=== PATIENT | female | born 1995 | race Caucasian/White ===

== ENCOUNTER 2018-06-24 01:38 | Emergency (ER) | payer OTHER ==
[2018-06-24 01:46] VITALS: BP 154/96; PULSE 75; RESP 16; TEMP 98.1
[2018-06-24] MEDS ORDERED: IBUPROFEN 600 MG TAB PO STA (02:01)
--- NOTE | 2018-06-24 02:01 | ED ---
ENT HPI - General Chief complaint: ENT Stated complaint: ear infection Time Seen by Provider: 06/24/18 01:48 Source: patient, RN notes reviewed, old records reviewed Mode of arrival: ambulatory Limitations: no limitations - History of Present Illness Initial comments: This is a 22 year old femael with 2 days of L ear pain, drainage, and fullness. She denies fever. She reports no sore throat, cough, chest pain, or SOB. She reports no trauma to the ear including using cotton swaps. She denies recent OTC pain reliever use. She reports the pain was too severe to sleep tonight. - Related Data Previous Rx's Medication Instructions Recorded Amoxicillin 500 mg PO Q8H #21 capsule 06/24/18 methylPREDNISolone Dose Pack 4 mg PO DIRECTED #21 package 06/24/18 [Medrol Dose Pack] Allergies Allergy/AdvReac Type Severity Reaction Status Date / Time No Known Allergies Allergy Verified 06/24/18 01:46 Review of Systems ROS Statement: Those systems with pertinent positive or pertinent negative responses have been documented in the HPI. ROS Other: All systems not noted in ROS Statement are negative. Past Medical History Past Medical History: Seizure Disorder History of Any Multi-Drug Resistant Organisms: None Reported Past Surgical History: No Surgical Hx Reported Past Psychological History: No Psychological Hx Reported Smoking Status: Current every day smoker Past Alcohol Use History: None Reported Past Drug Use History: None Reported General Exam - General Exam Comments Initial Comments: This is a 22 year old femle, no distress. Limitations: no limitations General appearance: alert, in no apparent distress Head exam: Present: atraumatic, normocephalic, normal inspection Eye exam: Present: normal appearance, PERRL, EOMI. Absent: scleral icterus, conjunctival injection, periorbital swelling ENT exam: Present: normal exam, mucous membranes moist. Absent: TM's normal bilaterally (L TM effusion, drainage in ear canal. ) Neck exam: Present: normal inspection. Absent: tenderness, meningismus, lymphadenopathy Respiratory exam: Present: normal lung sounds bilaterally. Absent: respiratory distress, wheezes, rales, rhonchi, stridor Cardiovascular Exam: Present: regular rate, normal rhythm, normal heart sounds. Absent: systolic murmur, diastolic murmur, rubs, gallop, clicks GI/Abdominal exam: Present: soft, normal bowel sounds. Absent: distended, tenderness, guarding, rebound, rigid Extremities exam: Present: normal inspection, full ROM, normal capillary refill. Absent: tenderness, pedal edema, joint swelling, calf tenderness Back exam: Present: normal inspection Neurological exam: Present: alert, oriented X3, CN II-XII intact Psychiatric exam: Present: normal affect, normal mood Skin exam: Present: warm, dry, intact, normal color. Absent: rash Course Vital Signs 06/24/18 01:43 Temperature 98.1 F Pulse Rate 75 Respiratory 16 Rate Blood Pressure 154/96 O2 Sat by Pulse 98 Oximetry Medical Decision Making - Medical Decision Making 22 year old female with L otititis media with effusion. Evidence of drainage from Ear canal, unable to detect area of perforation at this time. Started patient on prednisone and antibiotics. Discussed return paraeters. Discussed using motrin tylenol and decongestant medication. Disposition Clinical Impression: Left otitis media with effusion Disposition: HOME SELF-CARE Condition: Good Additional Instructions: Patient has follow-up with primary care physician. Return to emergency department if any alarming signs or symptoms occur. Take decongestant medicine. Motrin Tylenol for pain. Prescriptions: Amoxicillin 500 mg PO Q8H #21 capsule methylPREDNISolone Dose Pack [Medrol Dose Pack] 4 mg PO DIRECTED #21 package Is patient prescribed a controlled substance at d/c from ED?: No Referrals: Daly La MD [Primary Care Provider] - 1-2 days Time of Disposition: 01:59
[2018-06-24] MEDS ORDERED: predniSONE 50 MG TAB PO STA (02:02)
== END 2018-06-24 02:18 | disposition home or self-care (01) ==
LOC: EC 01:38
DX: H65.92 Unspecified nonsuppurative otitis media, left ear (principal); F17.200 Nicotine dependence, unspecified, uncomplicated
CPT/HCPCS: 99283; J7512

== ENCOUNTER 2022-05-27 06:45 | Outpatient (CLI) | payer OTHER ==
[2022-05-27 07:48] VITALS: BP 145/84; PULSE 71; RESP 18; TEMP 97.7
--- NOTE | 2022-06-15 08:30 | P.MSEPDOC ---
Presenting Problems - Arrival Data Date of Arrival on Unit: 05/27/22 Time of Arrival on Unit: 06:45 Mode of Transport: Ambulatory - Complaint OB-Reason for Admission/Chief Complaint: Decreased Movement Medical History - Information : 1 Para: 0 Term: 0 : 0 Abortions: Spontaneous or Elective: 0 Number of Living Children: 0 - Gestational Age Gestational Age by GUS (wks/days): 30 Weeks and 6 Days Review of Systems - Review of Systems Constitutional: No problems Breast: No problems ENT: No problems Cardiovascular: No problems Respiratory: No problems Gastrointestinal: No problems Genitourinary: No problems Musculoskeletal: No problems Neurological: No problems Skin: No problems Vital Signs - Temperature Temperature: 97.7 F Temperature Source: Temporal Artery Scan - Pulse Pulse Oximetery Pulse Rate: 71 Pulse Assessment Method: Pulse Oximetry - Respirations Respiratory Rate: 18 Oxygen Delivery Method: Room Air O2 Sat by Pulse Oximetry: 99 - Blood Pressure Right Arm Blood Pressure: 145/84 Blood Pressure Mean: 104 Blood Pressure Source: Automatic Cuff Medical Screen Scoring - Assessment - Baby A Baseline FHR: 125 Heart Rate - NICHD Category: Category I (Normal) NST: Reactive Physician Notification - Physician Notified Physician Notified Date: 05/27/22 Physician Notified Time: 07:38 Physician: Joan Connor New Order Received: Yes - Notification Comment Comment: Dr. Connor called, report given on maternal and status, c/o decreased movement (last movements on ). NST is reactive with large accelerations, pt is feeling good movement now, and RN has aus cultated and palpated movement as well. Pt was upset upon arrival to triage and initial BP was 145/84. It has since come down to 134/63. Pt has an appointment tomorrow with Dr. Truong. Orders to discharge pt home Maternal Triage Index - Maternal Triage Index Presenting for scheduled procedure w/no complaint: No - Stat/Priority 1 Stat Priority 1: No - Urgent/Priority 2 Urgent Priority 2: Yes Provider Notified: Joan Connor Provider Notified Time: 07:38 Criteria Met for Priority 2: 30 6/7 weeks, decreased movement since Disposition - Disposition OB Disposition: Discharge to home Discharge Date: 07/31/22 Discharge Time: 07:45 I agree with the RN Medical Screening Exam: Yes Case reviewed; plan agreed upon as documented in EMR&OBIX.: Yes Diagnosis: Decreased movement
== END 2022-05-27 07:45 | disposition home or self-care (01) ==
LOC: FBPOP 06:45
PROVIDERS: ATTEND Obstetrics & Gynecology
DX: O36.8130 Decreased fetal movements, third trimester, not applicable or unspecified (principal); Z3A.30 30 weeks gestation of pregnancy
CPT/HCPCS: 59025; G0463; 99213

== ENCOUNTER 2022-07-30 14:55 | Inpatient (IN) | payer OTHER ==
[2022-07-31] MEDS ORDERED: OXYTOCIN 30 UNITS/500 ML NS 30 UNIT in SALINE 1 500ML.BAG IV SCH ×2 (07:00→22:15)
[2022-07-31] MEDS ORDERED: TERBUTALINE 1 MG/ML VIAL SQ PRN (07:00)
[2022-07-31] MEDS ORDERED: OXYTOCIN 10 UNIT/ML 1 ML VIAL IM PRN (07:00)
[2022-07-31] MEDS ORDERED: CARBOPROST TROMETHAMINE 250 MCG/ML 1 ML AMP IM PRN (07:00)
[2022-07-31] MEDS ORDERED: METHYLERGONOVINE 0.2 MG/ML 1 ML AMP IM PRN (07:00)
[2022-07-31] MEDS ORDERED: LIDOCAINE 0.5% (PF) 5 MG/ML (50 ML SDV) SQ PRN (07:00)
[2022-07-31] MEDS: LACTATED RINGERS 1,000 ML IV SCH ×3 (07:04→16:37)
[2022-07-31 07:30] LABS: Basophils % (A) 0 %; Eosinophils # (A) 0.1 k/uL (0-0.7); Eosinophils % (A) 1 %; HCT 34.2 % (34.0-46.0); Hypochromasia Slight; Lymphocytes # (A) 3.3 k/uL (1.0-4.8); Lymphocytes % (A) 25 %; MCH 26.2 pg (25.0-35.0); MCHC 32.2 g/dL (31.0-37.0); MCV 81.2 fL (80.0-100.0); Mean Platelet Volume 8.6; Monocytes # (A) 0.7 k/uL (0-1.0); Monocytes % (A) 5 %; Neutrophils # (A) 8.9 k/uL (1.3-7.7); Neutrophils % (A) 67 %; Platelet Count 377 k/uL (150-450); RBC 4.21 m/uL (3.80-5.40); WBC 13.3 k/uL (3.8-10.6)
[2022-07-31 07:43] LABS: Amphetamine Screen,Urine Not Detected (NotDetected); Barbiturate Screen,Urine Not Detected (NotDetected); Benzodiazepines Screen,Urine Not Detected (NotDetected); Cocaine Screen,Urine Not Detected (NotDetected); Methadone Screen, Urine Not Detected (NotDetected); Opiate Screen,Urine Not Detected (NotDetected); Oxycodone Screen, Urine Not Detected (NotDetected); Phencyclidine Screen,Urine Not Detected (NotDetected); Tricyclic Antidepressant,Urine Not Detected (NotDetected); Urn Cannabinoid Scrn Not Detected (NotDetected)
--- NOTE | 2022-07-31 09:15 | P.HPOB ---
History of Present Illness H&P Date: 07/31/22 Chief Complaint: 40 and one sevenths weeks, induction the patient is a 26-year-old 1 para 0 admitted at 40 and one sevenths weeks as established by last menstrual period and confirmed by 15 week ultrasound. She is admitted for induction of labor with all signs reassuring, category 1 heart rate tracing. 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 Group B strep status is negative patient is rubella nonimmune. Obstetrical history: 1 para 0 with current statistics listed in history of present illness. EDC of 07/30/2022 was established by last menstrual period and confirmed by 15 week ultrasound. Laboratory workup demonstrates a blood type of O+ with a negative antibody screen. Rubella status is nonimmune. The remainder of her laboratory workup was within normal limits. Early Glucola as well as second trimester Glucola were within normal limits and group B strep status is negative. Gynecologic history: Unremarkable with no history of any STDs though she does have hepatitis C contracted through IV drug abuse. Review of Systems review of systems is confined to history of present illness. Past Medical History Past Medical History: Seizure Disorder Additional Past Medical History / Comment(s): last sz 2015 epilepsy History of Any Multi-Drug Resistant Organisms: None Reported Past Surgical History: No Surgical Hx Reported Past Anesthesia/Blood Transfusion Reactions: No Reported Reaction Past Psychological History: No Psychological Hx Reported Smoking Status: Never smoker Past Alcohol Use History: None Reported Past Drug Use History: None Reported Additional Drug Use History / Comment(s): Pt hx of heroin, last used 2016; Hx THC use in , UDS negative on admission - Past Family History Mother Family Medical History: No Reported History Medications and Allergies Home Medications Medication Instructions Recorded Confirmed Type FLUoxetine HCL [Prozac] 40 mg PO DAILY 05/27/22 07/31/22 History Vit No.179/Iron/Folic 1 tab PO DAILY 07/31/22 07/31/22 History [ Tablet] Allergies Allergy/AdvReac Type Severity Reaction Status Date / Time No Known Allergies Allergy Verified 07/31/22 06:58 Exam Vital Signs Temp Pulse Resp BP Pulse Ox 07/31/22 06:58 97.2 F L 94 16 140/78 96 Intake and Output 07/30/22 07/31/22 07/31/22 22:59 06:59 14:59 Other: Weight 131.542 kg 131.542 kg in general, this is a well-developed, morbidly obese white female in no acute distress. Her heart has a regular rhythm and rate without murmur. Her lungs are clear to auscultation bilaterally in all robertson. Her abdomen is obese, gravid, nondistended, has normal active bowel sounds, soft, nontender, and without any palpable masses aside from uterine fundus. Her extremities without any cyanosis, clubbing, or edema and are nontender to palpation bilaterally. Digital cervical examination demonstrates her cervix to be 2 cm dilated, 50% effaced, with the vertex in presentation at -2 station. Artificial rupture of membranes is carried out demonstrating clear fluid. Results Result Diagrams: 07/31/22 07:05 Abnormal Lab Results - Last 24 Hours (Table) 07/31/22 Range/Units 07:05 WBC 13.3 H (3.8-10.6) k/uL Hgb 11.0 L (11.4-16.0) gm/dL Neutrophils # 8.9 H (1.3-7.7) k/uL Assessment and Plan (1) Term Current Visit: Yes Status: Acute Code(s): Z34.90 - ENCNTR FOR SUPRVSN OF NORMAL , UNSP, UNSP TRIMESTER SNOMED Code(s): 50037113 (2) Chronic active hepatitis C Current Visit: Yes Status: Acute Code(s): B18.2 - CHRONIC VIRAL HEPATITIS C SNOMED Code(s): 699443761 Plan: the patient has been admitted for induction of labor. Pitocin has been started and artificial rupture of membranes carried out with clear fluid. She will have close maternal and surveillance and expectant management will be practiced. She is a good candidate for either IV or epidural analgesia should she so choose. She additionally is a candidate for nitrous oxide in labor should she choose that instead.
[2022-07-31] MEDS: BUTORPHANOL 1 MG/ML 1 ML VIAL IV PRN ×2 (09:26→11:28)
[2022-07-31] MEDS ORDERED: fentaNYL (PF) 50 MCG/ML 5 ML AMP ONE (12:55)
[2022-07-31] MEDS ORDERED: ROPIVACAINE 5 MG/ML 20 ML AMPULE ONE (12:55)
[2022-07-31] MEDS ORDERED: SODIUM CHLORIDE 0.9% 100 ML BAG ONE (12:55)
[2022-07-31] MEDS ORDERED: ROPIVACAINE 100 MG, fentaNYL (PF). 200 MCG in SODIUM CHLORIDE 0.9% 76 ML EPIDURAL ONE (13:30)
[2022-07-31] MEDS ORDERED: ONDANSETRON 4 MG/2 ML VIAL ONE (21:03)
[2022-07-31] MEDS ORDERED: OXYTOCIN 30 UNITS/500 ML NS BAG IV ONE (21:03)
[2022-07-31] MEDS ORDERED: KETOROLAC 15 MG/ML 1 ML VIAL ONE (21:03)
[2022-07-31] MEDS ORDERED: MORPHINE SULFATE (PF) 0.3 MG/0.3 ML SYR ONE (21:03)
[2022-07-31] MEDS ORDERED: SIMETHICONE 80 MG CHEWABLE PO PRN (22:05)
[2022-07-31] MEDS ORDERED: KETOROLAC 15 MG/ML 1 ML VIAL IVP PRN (22:05)
[2022-07-31] MEDS ORDERED: ZOLPIDEM 5 MG TAB PO PRN (22:05)
[2022-07-31] MEDS ORDERED: diphenhydrAMINE 50 MG/ML 1 ML VIAL IVP PRN ×2 (22:05)
[2022-07-31] MEDS ORDERED: diphenhydrAMINE 25 MG CAP PO PRN (22:05)
[2022-07-31] MEDS ORDERED: METOCLOPRAMIDE 5 MG/ML 2 ML VIAL IVP PRN (22:05)
[2022-07-31] MEDS ORDERED: diphenhydrAMINE 50 MG CAP PO PRN (22:05)
[2022-07-31] MEDS ORDERED: NALOXONE 0.4 MG/ML 1 ML VIAL IV PRN (22:05)
[2022-07-31] MEDS ORDERED: LANOLIN CREAM 5 GM TUBE TOPICAL PRN (22:05)
[2022-07-31] MEDS ORDERED: ONDANSETRON 4 MG/2 ML VIAL IVP PRN (22:05)
[2022-07-31] MEDS ORDERED: CITRIC ACID-SODIUM CITRATE 15 ML CUP PO ONE (22:08)
[2022-07-31] MEDS ORDERED: ceFAZolin 3 GM in SODIUM CHLORIDE 0.9% 100 ML IVPB ONE (22:08)
--- NOTE | 2022-07-31 22:20 | P.OP ---
Date of Procedure: 07/31/22 Preoperative Diagnosis: #1. 40 and one sevenths weeks, induction #2. Arrest of dilation and descent #3. Chronic active hepatitis C #4. Suspected malposition Postoperative Diagnosis: same plus #5. occiput posterior Procedure(s) Performed: primary low-transverse section Anesthesia: spinal Surgeon: Jose G Truong Account Support Associate #1: Lois Metcalf Estimated Blood Loss (ml): 543 IV fluids (ml): 1,000 Urine output (ml): 150 Pathology: other (placenta) Condition: stable Disposition: floor Operative Findings: preoperatively, the patient had made slow progress ultimately to approximate 4-5 cm this afternoon and made no further change. Additionally, the station was never noted to be lower than -2 and never lower than it was at the time of rupture of membranes this morning. She additionally was having significant discomfort and, when offered the opportunity for section immediately agreed to the suggestion. Additionally, occiput posterior was suspected and the patient was noted to have a very narrow pubic arch suggesting a possible contracted pelvis. She was taken the operating room where she was delivered of a viable 7 lbs. 3 oz. baby boy with Apgars of 8 at 1 minute and 9 at 5 minutes delivered in the direct occiput posterior position. The placenta was delivered manually, intact, and grossly normal with a grossly normal three-vessel cord. The uterus, tubes, and ovaries were entirely normal to inspection. Description of Procedure: the patient was prepped and draped in usual fashion after spinal anesthesia was administered by the anesthesiologist. A Pfannenstiel incision was made and extended into the abdominal cavity without difficulty. The bladder peritoneum was elevated, incised, and reflected distally. A 2 cm incision was made in the transverse plane of the lower uterine segment to enter the uterus at which time clear fluid was again noted. Incision was extended in both directions using the bandage scissors. head was found deep in the pelvis in the occiput posterior positionand was delivered up and through the incisionwhere the nose and mouth were thoroughly suctioned. The remainder of the infant was delivered onto the field where the cord was doubly clamped, cut, and the infant passed resuscitative measures with weight and Apgars as noted above. The placenta was delivered manually, intact, and grossly normal as noted above. The uterus was exteriorized and the interior cavity of uterus swept of any remaining placental or membranous fragments. The margins of the incision were grasped with Serrano clamps and there was noted to be 1 very small laceration towards the cervix in the right middle portion of the lower half of the incision which was incorporated in the closure. The incision was closed in 2 layers with the first layer being a running locking stitch of 0 chromic catgut followed by a running imbricating layer of 0 chromic catgut. Any small points of bleeding were made hemostatic with the Bovie. The posterior cul-de-sac was then suctioned with a guard and the uterine and ovarian findings are normal as noted above. The uterus was replaced within the abdominal cavity and the gutters swept of any remaining blood, fluid, or clot. The incision was reexamined and any small points of bleeding made hemostatic with the Bovie. There was a more significant area of bleeding at the right angle which was made hemostatic with a [id number] stitch of 0 chromic catgut. Surgicel powder was then applied to the entire incision, particularly in the angles. The parietal peritoneum was loosely reapproximated and the layer of muscles examined and found to be hemostatic. The fascia was closed with 2 running stitches of 0 Vicryl proceeding from lateral margins to the midpoint. The subcutaneous tissues were irrigated, made hemostatic with the Bovie, and reapproximated with a running stitch of 30 plain catgut. The skin was reapproximated with a running subcu ticular stitch of 4-0 Vicryl followed by half-inch Steri-Strips placed with Mastisol. Quantitative blood loss for the case was 543 mL's. There were no complications. All sponge, instrument, needle counts were correct. The patient tolerated the procedure well and proceeded to the recovery room in stable condition. Both mother and infant are resting comfortably in recovery.
[2022-08-01] MEDS: ACETAMINOPHEN TAB 500 MG TAB PO SCH ×4 (03:00→23:35)
[2022-08-01] MEDS: LACTATED RINGERS 1,000 ML IV SCH ×3 (03:45→23:35)
[2022-08-01] MEDS: IBUPROFEN 600 MG TAB PO SCH ×3 (05:44→17:12)
[2022-08-01 07:23] LABS: Basophils % (A) 0 %; Eosinophils % (A) 0 %; HCT 32.4 % (34.0-46.0); HGB 10.3 gm/dL (11.4-16.0); Hypochromasia Slight; Lymphocytes # (A) 2.3 k/uL (1.0-4.8); Lymphocytes % (A) 16 %; MCH 25.5 pg (25.0-35.0); MCHC 31.7 g/dL (31.0-37.0); MCV 80.6 fL (80.0-100.0); Mean Platelet Volume 8.2; Monocytes # (A) 0.8 k/uL (0-1.0); Monocytes % (A) 5 %; Neutrophils # (A) 11.3 k/uL (1.3-7.7); Neutrophils % (A) 77 %; Platelet Count 334 k/uL (150-450); RBC 4.01 m/uL (3.80-5.40); RDW 14.2 % (11.5-15.5); WBC 14.7 k/uL (3.8-10.6)
[2022-08-01] MEDS: SENNOSIDES-DOCUSATE SODIUM 1 EACH TAB PO SCH ×2 (09:02→23:36)
--- NOTE | 2022-08-01 09:11 | P.PN ---
Progress Note - Text Progress Note Date: 08/01/22 (5745) Anesthesia Postop day 1 Subjective: Status Post section with Duramorph. Patient seen and examined. Doing well without complaint. VAS 5 out of 10rest able. Gross lower extremity strength intact. Afebrile. Gross lower extremity strength intact. . Without apparent anesthetic complications. Objective: Vital signs reviewed Heart: Regular Rate Lungs: Good chest excursion Abdomen: Appears nondistended Assessment: Status post with Duramorph postop day 1 Plan: Continue current care with your medical management. Anticipated and the Duramorph around midnight tonight, you may see increased pain needs around this time.
--- NOTE | 2022-08-01 09:55 | P.PNOBGPC ---
Subjective - Subjective Patient reports: Reports appetite normal, Reports voiding normally, Reports pain well controlled, Reports ambulating normally : doing well Objective - Vital Signs Latest vital signs: Vital Signs Temp Pulse Resp BP Pulse Ox 08/01/22 08:00 98.0 F 81 16 144/89 99 08/01/22 03:53 98.6 F 80 16 130/74 100 08/01/22 00:10 98 F 65 18 143/65 08/01/22 00:00 98 F 65 18 143/65 07/31/22 23:40 70 18 134/62 07/31/22 23:10 98 F 63 18 155/73 07/31/22 22:55 77 18 118/56 100 07/31/22 22:40 63 18 139/65 100 07/31/22 22:25 65 18 145/74 100 07/31/22 22:10 96.5 F L 65 18 145/74 100 Intake and Output 07/31/22 08/01/22 08/01/22 22:59 06:59 14:59 Intake Total 30.367 Output Total 543 1343 Balance -512.633 -1343 Intake: Intake, IV Titration 30.367 Amount Oxytocin 30 Units/500 ml 30.367 Ns 30 unit In Saline 1 500ml.bag @ Per Protocol IV .Q0M [facility] Rx#:[id number] Output: Urine 0 700 Uretheral (Hansen) 400 Estimated Blood Loss 543 543 Output, Quantitative 100 Blood Loss Other: # Voids 0 0 0 - Exam Extremities: Present: normal Abdomen: Present: normal appearance, soft. Absent: distention, tenderness Incision: Present: normal, dry, intact Uterus: Present: normal, firm (the uterine fundus is tonic an appropriate a tender just below the umbilicus.) - Labs Labs: Abnormal Lab Results - Last 24 Hours (Table) 08/01/22 Range/Units 06:36 WBC 14.7 H (3.8-10.6) k/uL Hgb 10.3 L (11.4-16.0) gm/dL Hct 32.4 L (34.0-46.0) % Neutrophils # 11.3 H (1.3-7.7) k/uL Assessment and Plan (1) Term Current Visit: Yes Status: Acute Code(s): Z34.90 - ENCNTR FOR SUPRVSN OF NORMAL , UNSP, UNSP TRIMESTER SNOMED Code(s): 56273135 (2) Chronic active hepatitis C Current Visit: Yes Status: Acute Code(s): B18.2 - CHRONIC VIRAL HEPATITIS C SNOMED Code(s): 555836436 (3) S/P section Current Visit: Yes Status: Acute Code(s): Z98.891 - HISTORY OF UTERINE SCAR FROM PREVIOUS SURGERY SNOMED Code(s): 531596064 Plan: continue routine and postoperative care. I have encouraged the pa tient and with the hallways routinely. I would anticipate discharge home tomorrow pending complications. She is tolerating a regular diet at this time.
[2022-08-02] MEDS: IBUPROFEN 600 MG TAB PO SCH ×2 (00:43→08:01)
[2022-08-02 00:51] VITALS: TEMP 98.1
[2022-08-02 07:44] VITALS: BP 138/84; PULSE 89; RESP 20
[2022-08-02] MEDS: SENNOSIDES-DOCUSATE SODIUM 1 EACH TAB PO SCH (08:01)
--- NOTE | 2022-08-02 09:05 | P.DS ---
Providers Date of admission: 07/31/22 06:33 Expected date of discharge: 08/02/22 Attending physician: Jose G Truong Primary care physician: Noy Larsen - Discharge Diagnosis(es) (1) Term Current Visit: Yes Status: Acute (2) Chronic active hepatitis C Current Visit: Yes Status: Acute (3) S/P section Current Visit: Yes Status: Acute Hospital Course: the patient is a 26-year-old 1 para 0 admitted at 40 and one sevenths weeks by good dating parameters. She is admitted for induction of labor with all signs reassuring. Her was complicated only with a diagnosis of chronic active hepatitis C secondary to history of IV drug dependence in the past for which she has been in recovery since 2017. On labor and delivery, she had Pitocin augmentation started and underwent artificial rupture of membranes. She made slow progress to approximate 4-5 cm in the mid afternoon at which time she arrested all dilation and descent. After approximately 6-8 hours at that dilation and with the recognition of a narrow pubic arch and probable occiput posterior position, she was taken the operating room where she was delivered by primary low transverse section of a viable 7 lbs. 3 oz. baby boy with Apgars of 8 at 1 minute and 9 at 5 minutes. Her and postoperative course were unremarkable with vital signs or any stable and her temperature was afebrile throughout. She was deemed stable for discharge on post and postoperative day #2. Discharge instructions included calling for any significantly increased bleeding or 4 or foul-smelling lochia, sign ificantly increased fever or abdominal pain, perineal complaints, breast complaints, incisional complaints, or anything also concerned her. She is additionally instructed to do no heavy lifting over the next 4-6 weeks and to abstain from anything in the vagina over the next 6 weeks to include intercourse. She was last instructed to do no driving until off of all pain medications or 2 weeks' time, whichever came first. She understood her instructions and agrees follow up as noted above. Discharge medications included only continue vitamins as well as [id number] analgesic pain medications. She declined narcotics secondary to her previous history. Maternal blood type is O+ and rubella status is nonimmune. She was therefore to receive the MMR vaccination prior to discharge. Discharge hemoglobin and hematocrit were10.3 and 32.4 respectively. Procedures: #1. Pitocin induction #2. Artificial rupture of membranes #3. Epidural analgesia, twice #4. Primary low-transverse section Patient Condition at Discharge: Stable Plan - Discharge Summary New Discharge Prescriptions: No Action Vit No.179/Iron/Folic [ Tablet] 1 tab PO DAILY FLUoxetine HCL [Prozac] 40 mg PO DAILY Discharge Medication List FLUoxetine HCL [Prozac] 40 mg PO DAILY 05/27/22 [History] Vit No.179/Iron/Folic [ Tablet] 1 tab PO DAILY 07/31/22 [History] Follow up Appointment(s)/Referral(s): Jose G Truong MD [STAFF PHYSICIAN] - 2 Weeks Discharge Disposition: HOME SELF-CARE
== END 2022-08-02 12:30 | disposition home or self-care (01) | DRG 787 ==
LOC: 4FBP 07-31 06:33
PROVIDERS: ADMIT Obstetrics & Gynecology; ATTEND Obstetrics & Gynecology
PROC: 00HU33Z Insertion of Infusion Device into Spinal Canal, Percutaneous Approach (ICD-10-PCS; principal; 2022-07-31 21:36)
PROC: 10D00Z1 Extraction of Products of Conception, Low, Open Approach (ICD-10-PCS; principal; 2022-07-31 21:36)
PROC: 3E0R3NZ Introduction of Analgesics, Hypnotics, Sedatives into Spinal Canal, Percutaneous Approach (ICD-10-PCS; principal; 2022-07-31 21:36)
PROC: 3E033VJ Introduction of Other Hormone into Peripheral Vein, Percutaneous Approach (ICD-10-PCS; principal; 2022-07-31 21:36)
PROC: 10907ZC Drainage of Amniotic Fluid, Therapeutic from Products of Conception, Via Natural or Artificial Opening (ICD-10-PCS; principal; 2022-07-31 21:36)
DX: O98.42 Viral hepatitis complicating childbirth (principal); O99.354 Diseases of the nervous system complicating childbirth; O62.1 Secondary uterine inertia; G40.909 Epilepsy, unspecified, not intractable, without status epilepticus; B18.2 Chronic viral hepatitis C; O99.214 Obesity complicating childbirth; F11.11 Opioid abuse, in remission; E66.01 Morbid (severe) obesity due to excess calories; Z3A.40 40 weeks gestation of pregnancy; Z37.0 Single live birth; Z79.899 Other long term (current) drug therapy; O32.8XX0 Maternal care for other malpresentation of fetus, not applicable or unspecified; Z28.310 Unvaccinated for COVID-19; Z28.21 Immunization not carried out because of patient refusal
CPT/HCPCS: 80306; 85025; 86850; 86900; 86901

== ENCOUNTER 2023-08-15 10:58 | Emergency (ER) | payer OTHER ==
--- NOTE | 2023-08-15 11:34 | ED ---
Extremity Problem HPI - General Chief complaint: Extremity Problem,Nontraumatic Stated complaint: Right knee pain Time Seen by Provider: 08/15/23 11:06 Source: patient, RN notes reviewed Mode of arrival: ambulatory Limitations: no limitations - History of Present Illness Initial comments: 27-year-old female presents emergency department tingling right knee pain. Patient states pain started yesterday she woke up with a. She is concerned about possible DVT as she is currently , had recent COVID 19. Patient has no history DVT states her swelling no redness. Denies any trauma. - Related Data Home Medications Medication Instructions Recorded Confirmed FLUoxetine HCL [Prozac] 40 mg PO DAILY 05/27/22 07/31/22 Vit No.179/Iron/Folic 1 tab PO DAILY 07/31/22 07/31/22 [ Tablet] Allergies Allergy/AdvReac Type Severity Reaction Status Date / Time No Known Allergies Allergy Verified 08/15/23 11:03 Review of Systems ROS Statement: Those systems with pertinent positive or pertinent negative responses have been documented in the HPI. ROS Other: All systems not noted in ROS Statement are negative. Past Medical History Past Medical History: Seizure Disorder Additional Past Medical History / Comment(s): last sz 2015 epilepsy History of Any Multi-Drug Resistant Organisms: None Reported Past Surgical History: Section Past Anesthesia/Blood Transfusion Reactions: No Reported Reaction Past Psychological History: No Psychological Hx Reported Smoking Status: Never smoker Past Alcohol Use History: None Reported Past Drug Use History: None Reported - Past Family History Mother Family Medical History: No Reported History General Exam Limitations: no limitations General appearance: alert, in no apparent distress Head exam: Present: atraumatic, normocephalic, normal inspection Respiratory exam: Present: normal lung sounds bilaterally. Absent: respiratory distress, wheezes, rales, rhonchi, stridor Cardiovascular Exam: Present: regular rate, normal rhythm, normal heart sounds. Absent: systolic murmur, diastolic murmur, rubs, gallop, clicks Extremities exam: Present: other (Right knee there is swelling noted no erythema no increase in warmth neurovascular intact mild tenderness.) Course Vital Signs 08/15/23 08/15/23 08/15/23 11:00 12:09 12:11 Temperature 98.3 F 98.4 F 98.4 F Pulse Rate 76 86 83 Respiratory 16 18 18 Rate Blood Pressure 150/99 156/84 156/84 O2 Sat by Pulse 98 99 99 Oximetry Medical Decision Making - Medical Decision Making Was pt. sent in by a medical professional or institution (, LEE ANN, DIRECTOR OF SPORTS MEDICINE, urgent care, hospital, or shelter...) When possible be specific @ -No Did you speak to anyone other than the patient for history (EMS, parent, family, police, friend...)? What history was obtained from this source @ -No Did you review nursing and triage notes (agree or disagree)? Why? @ -I reviewed and agree with nursing and triage notes Were old charts reviewed (outside hosp., previous admission, EMS record, old EKG, old radiological studies, urgent care reports/EKG's, shelter records)? Report findings @ -No old charts were reviewed Differential Diagnosis (chest pain, altered mental status, abdominal pain women, abdominal pain men, vaginal bleeding, weakness, fever, dyspnea, syncope, headache, dizziness, GI bleed, back pain, seizure, CVA, palpatations, mental health, musculoskeletal)? @ -DVT, knee effusion, knee sprain EKG interpreted by me (3pts min.). @ -None X-rays interpreted by me (1pt min.). @ -None done CT interpreted by me (1pt min.). @ -None done U/S interpreted by me (1pt. min.). @ -Ultrasound was negative for acute DVT. What testing was considered but not performed or refused? (CT, X-rays, U/S, labs)? Why? @ -None What meds were considered but not given or refused? Why? @ -None Did you discuss the management of the patient with other professionals (professionals i.e. LEE ANN Brown, DIRECTOR OF SPORTS MEDICINE, lab, RT, psych nurse, social group worker, general foreman, teacher, signals officer, case making machine operator)? Give summary @ -No Was smoking cessation discussed for >3mins.? @ -No Was critical care preformed (if so, how long)? @ -No Were there social determinants of health that impacted care today? How? (Homelessness, low income, unemployed, alcoholism, drug addiction, transportation, low edu. Level, literacy, decrease access to med. care, nursing home, rehab)? @ -No Was there de-escalation of care discussed even if they declined (Discuss DNR or withdrawal of care, Hospice)? DNR status @ -No What co-morbidities impacted this encounter? (DM, HTN, Smoking, COPD, CAD, Cancer, CVA, ARF, Chemo, Hep., AIDS, mental health diagnosis, sleep apnea, morbid obesity)? @ -None Was patient admitted / discharged? Hospital course, mention meds given and route, prescriptions, significant lab abnormalities, going to OR and other pertinent info. @ -Discharged patient has a right knee effusion on the knee pain negative ultrasound patient follow-up with orthopedics. Undiagnosed new problem with uncertain prognosis? @ -No Drug Therapy requiring intensive monitoring for toxicity (Heparin, Nitro, Insulin, Cardizem)? @ -No Were any procedures done? @ -No Diagnosis/symptom? @ -Knee effusion, knee pain Acute, or Chronic, or Acute on Chronic? @ -Acute Uncomplicated (without systemic symptoms) or Complicated (systemic symptoms)? @ -Uncomplicated Side effects of treatment? @ -No Exacerbation, Progression, or Severe Exacerbation? @ -No Poses a threat to life or bodily function? How? (Chest pain, [place], [place], pneumonia, PE, COPD, DKA, ARF, appy, cholecystitis, CVA, Diverticulitis, Homicidal, Suicidal, threat to staff... and all critical care pts) @ -No Disposition Clinical Impression: Swelling of right knee joint, Right knee pain Disposition: HOME SELF-CARE Condition: Stable Instructions (If sedation given, give patient instructions): Knee Pain (ED) Additional Instructions: Please return to the Emergency Department if symptoms worsen or any other concerns. Is patient prescribed a controlled substance at d/c from ED?: No Referrals: Jennifer Blankenship DO [Doctor of Osteopathic Medicine] - 1-2 days Noy Larsen MD [Primary Care Provider] - 1-2 days Time of Disposition: 12:02
--- NOTE | 2023-08-15 11:52 | US ---
EXAMINATION TYPE: US venous doppler duplex LE RT DATE OF EXAM: 08/15/2023 11:25 AM COMPARISON: NONE CLINICAL INDICATION: Female, 27 years old with history of pain; Patient states she woke up yesterday and right leg was swollen. No redness. No injury. SIDE PERFORMED: Right TECHNIQUE: The lower extremity deep venous system is examined utilizing real time linear array sonog hong with graded compression, doppler sonography and color-flow sonography. VESSELS IMAGED: Common Femoral Vein Deep Femoral Vein Greater Saphenous Vein * Femoral Vein Popliteal Vein Small Saphenous Vein * Proximal Calf Veins (* superficial vessels) Right Leg: Negative for DVT IMPRESSION: Grayscale, color doppler, spectral doppler imaging performed of the deep veins of the lo wer extremities. There is normal flow, compressibility, vascular waveforms.
[2023-08-15 12:21] VITALS: BP 156/84; PULSE 83; RESP 18; TEMP 98.4
== END 2023-08-15 12:33 | disposition home or self-care (01) ==
LOC: EC 10:58
DX: O9A.219 Injury, poisoning and certain other consequences of external causes complicating pregnancy, unspecified trimester (principal); S83.91XA Sprain of unspecified site of right knee, initial encounter; X58.XXXA Exposure to other specified factors, initial encounter
CPT/HCPCS: 99284

== ENCOUNTER 2024-01-14 09:05 | Inpatient (IN) | payer OTHER ==
[2024-01-14] MEDS ORDERED: OXYTOCIN 10 UNIT/ML 1 ML VIAL IM PRN (11:04)
[2024-01-14] MEDS ORDERED: TRANEXAMIC 1,000 MG/100ML-NACL 1,000 MG in EMPTY BAG 1 BAG IV PRN (11:04)
[2024-01-14] MEDS ORDERED: miSOPROStoL 200 MCG TAB PO PRN (11:04)
[2024-01-14] MEDS ORDERED: CARBOPROST TROMETHAMINE 250 MCG/ML 1 ML AMP IM PRN (11:04)
[2024-01-14] MEDS ORDERED: METHYLERGONOVINE 0.2 MG/ML 1 ML AMP IM PRN (11:04)
[2024-01-14] MEDS ORDERED: OXYTOCIN 30 UNITS/500 ML NS 30 UNIT in SALINE 1 500ML.BAG IV SCH (11:15)
[2024-01-14] MEDS: CITRIC ACID-SODIUM CITRATE 15 ML CUP PO ONE (11:28)
[2024-01-14] MEDS: ceFAZolin 3 GM in SODIUM CHLORIDE 0.9% 100 ML IVPB ONE (11:28)
[2024-01-14] MEDS: LACTATED RINGERS 1,000 ML IV SCH ×2 (11:29→15:08)
[2024-01-14 11:46] LABS: Basophils % (A) 0 %; Eosinophils # (A) 0.1 k/uL (0-0.7); Eosinophils % (A) 1 %; HCT 32.1 % (34.0-46.0); HGB 10.7 gm/dL (11.4-16.0); Hypochromasia Slight; Lymphocytes # (A) 2.8 k/uL (1.0-4.8); Lymphocytes % (A) 25 %; MCH 26.5 pg (25.0-35.0); MCHC 33.2 g/dL (31.0-37.0); MCV 79.9 fL (80.0-100.0); Mean Platelet Volume 8.5; Monocytes # (A) 0.5 k/uL (0-1.0); Monocytes % (A) 5 %; Neutrophils # (A) 7.5 k/uL (1.3-7.7); Neutrophils % (A) 67 %; Platelet Count 376 k/uL (150-450); RBC 4.02 m/uL (3.80-5.40); WBC 11.3 k/uL (3.8-10.6)
[2024-01-14] MEDS ORDERED: NALBUPHINE 10 MG/ML (10 ML MDV) ONE (12:25)
[2024-01-14] MEDS ORDERED: ONDANSETRON 4 MG/2 ML VIAL ONE (12:25)
[2024-01-14] MEDS ORDERED: MORPHINE SULFATE (PF) 0.3 MG/0.3 ML SYR ONE (12:25)
[2024-01-14] MEDS ORDERED: OXYTOCIN 30 UNITS/500 ML NS BAG IV ONE (12:25)
[2024-01-14] MEDS ORDERED: KETOROLAC 15 MG/ML 1 ML VIAL ONE (12:25)
[2024-01-14] MEDS ORDERED: NALOXONE 0.4 MG/ML 1 ML VIAL IV PRN (13:00)
[2024-01-14] MEDS ORDERED: diphenhydrAMINE 50 MG CAP PO PRN (13:13)
[2024-01-14] MEDS ORDERED: diphenhydrAMINE 25 MG CAP PO PRN (13:13)
[2024-01-14] MEDS ORDERED: SIMETHICONE 80 MG CHEWABLE PO PRN (13:13)
[2024-01-14] MEDS ORDERED: ONDANSETRON 4 MG/2 ML VIAL IVP PRN (13:13)
[2024-01-14] MEDS ORDERED: ZOLPIDEM 5 MG TAB PO PRN (13:13)
[2024-01-14] MEDS ORDERED: METOCLOPRAMIDE 5 MG/ML 2 ML VIAL IVP PRN (13:13)
[2024-01-14] MEDS ORDERED: diphenhydrAMINE 50 MG/ML 1 ML VIAL IVP PRN ×2 (13:13)
--- NOTE | 2024-01-14 13:23 | P.HPOB ---
History of Present Illness H&P Date: 01/14/24 Chief Complaint: 39-1/7 weeks, previous section, undesired fertility The patient is a 28-year-old 2 para 1-0-0-1 admitted at 39-1/7 weeks as established by first trimester ultrasound. She presents to the hospital for repeat low-transverse section having previously undergone a low- transverse section with her only other . She additionally carries a history of chronic active hepatitis C for which she has not been treated between pregnancies. She has a history of heroin use but has been clean for some time, since 2016. She additionally was found to have COVID during the and had a weekly nonstress test which was reactive weekly after 32 weeks. On labor and delivery, all signs are reassuring with a category 1 heart rate tracing. She has additionally requested intraoperative bilateral tubal occlusion and, after discussion of the alternative types of tubal occlusion, she has requested Filshie clips. Obstetrical history: 2 para 1-0-0-1 with 1 term delivery as noted above. Current statistics are listed in history of present illness. EDC of 01/20/2024 was established by early ultrasound. Laboratory workup demonstrates a blood type of O+ with a negative antibody screen. Rubella status is immune. The remainder of the laboratory workup was within normal limits. 1 hour Glucola was normal and group B strep status is negative. Gynecologic history: Unremarkable with no history of any infections to include STDs aside from hepatitis C which was transmitted via IV drug use in the distant past. She has not had treatment. Past Medical History Past Medical History: Seizure Disorder Additional Past Medical History / Comment(s): last sz 2015 epilepsy/ History of Any Multi-Drug Resistant Organisms: None Reported Past Surgical History: Section Past Anesthesia/Blood Transfusion Reactions: No Reported Reaction Past Psychological History: No Psychological Hx Reported Smoking Status: Never smoker Past Alcohol Use History: None Reported Past Drug Use History: None Reported Additional Drug Use History / Comment(s): Pt hx of heroin, last used 2016; Hx THC denies recent use , - Past Family History Mother Family Medical History: No Reported History Medications and Allergies Home Medications Medication Instructions Recorded Confirmed Type Vit No.179/Iron/Folic 1 tab PO DAILY 07/31/22 01/07/24 History [ Tablet] Allergies Allergy/AdvReac Type Severity Reaction Status Date / Time No Known Allergies Allergy Verified 01/07/24 15:47 Exam Vital Signs Temp Pulse Resp BP 01/14/24 11:03 97.7 F 75 16 149/72 Intake and Output 01/13/24 01/14/24 01/14/24 22:59 06:59 14:59 Other: Weight 137.892 kg In general, this is a well-developed, moderately obese white female in no acute distress. Her heart has a regular rhythm and rate without murmur. Her lungs are clear to auscultation bilaterally in all robertson. Her abdomen is gravid, non distended, has normal active bowel sounds, soft, nontender, and without any palpable masses aside from the uterine fundus. Her extremities are without any cyanosis, clubbing, or significant edema and are nontender to palpation bilaterally. Digital cervical examination is deferred. Results Result Diagrams: 01/14/24 10:30 Abnormal Lab Results - Last 24 Hours (Table) 01/14/24 Range/Units 10:30 WBC 11.3 H (3.8-10.6) k/uL Hgb 10.7 L (11.4-16.0) gm/dL Hct 32.1 L (34.0-46.0) % MCV 79.9 L (80.0-100.0) fL Assessment and Plan (1) Family planning Current Visit: Yes Status: Acute Code(s): Z30.09 - ENCOUNTER FOR OTH GENERAL CNSL AND ADVICE ON CONTRACEPTION SNOMED Code(s): 928431515 (2) Previous section Current Visit: Yes Status: Acute Code(s): Z98.891 - HISTORY OF UTERINE SCAR FROM PREVIOUS SURGERY SNOMED Code(s): 845086065 (3) Term Current Visit: Yes Status: Acute Code(s): Z34.90 - ENCNTR FOR SUPRVSN OF NORMAL , UNSP, UNSP TRIMESTER SNOMED Code(s): 36984415 Plan: The patient is admitted for repeat low-transverse section with intraoperative bilateral tubal occlusion using Filshie clips. The risks and complications of the procedure been thoroughly discussed and the patient has understood and agreed to proceed.
[2024-01-14] MEDS: OXYTOCIN 30 UNITS/500 ML NS 30 UNIT in SALINE 1 500ML.BAG IV SCH (13:30)
--- NOTE | 2024-01-14 13:30 | P.OP ---
Date of Procedure: 01/14/24 Preoperative Diagnosis: #1. 39-1/7 weeks, previous section, requesting repeat #2. Undesired fertility Postoperative Diagnosis: Same Procedure(s) Performed: #1. Repeat low-transverse section #2. Intraoperative bilateral tubal occlusion with Filshie clips Anesthesia: spinal Surgeon: Jose G Truong Blood Bank Assistant #1: Beatrice Valenzuela Estimated Blood Loss (ml): 635 IV fluids (ml): 1,000 Urine output (ml): 100 Pathology: none sent Condition: stable Disposition: floor Operative Findings: The patient was taken to the operating room where she was delivered of a viable 7 pound 7 ounce baby boy with Apgars of 9 at 1 minute and 10 at 5 minutes in the vertex and occiput anterior presentation. The placenta was delivered manually, intact, grossly normal with a grossly normal three-vessel cord. The uterus, tubes, and ovaries were entirely normal to inspection though the lower uterine segment was somewhat thin leading to opening the uterus above the thin segment. A Filshie clip was placed firmly across the isthmic portion of each fallopian tube approximately 2 to 3 cm from the cornu on each side. Description of Procedure: The patient was prepped and draped in usual fashion after spinal anesthesia was administered by the anesthesiologist. A Pfannenstiel incision was made through pre-existing scar and extended into the abdominal cavity without difficulty as you from some mild scarring at the level of the rectus muscles. The bladder peritoneum was scarred relatively high on a fairly thin lower uterine segment. It was therefore elevated, incised, and reflected distally. A 2 cm incision was made above the thin section of the lower uterine segment to enter the uterus at which time a fairly significant amount of clear fluid was noted. The incision was extended both directions using the bandage scissors. The head and the foot were encountered within the field the foot was reduced higher than the head. Secondary to the angles of the maternal abdomen, the head could not be elevated through the incision without the use of a mighty VAC vacuum which was applied to the occiput at which time the head was easily delivered. The nose and mouth were thoroughly suctioned. There was a loose nuchal cord x 1 reduced on the field prior to delivery of the infant's body. The remainder of the was delivered onto the field where the cord was doubly clamped, cut, and the infant passed for resuscitative measures with weight and Apgars as noted above. cord blood was collected per protocol. The placenta was delivered manually and intact as noted above. The uterus was exteriorized and the anterior cavity uterus swept of intermitting placental or membranous fragments. The margins of the uterine incision were grasped with Serrano clamps and the incision closed in a single running locking stitch of 0 chromic catgut from margin to margin. Hemostasis appeared to be excellent. The posterior cul-de-sac was suctioned with a guard and the uterine and ovarian findings were normal as noted above. After reaffirming with the patient her desire for tubal ligation, a Filshie clip was placed firmly across the isthmic portion of each fallopian tube approximately 2 to 3 cm from the cornu on each side. The uterus was replaced within the abdominal cavity and the gutters swept of any remaining blood, fluid, or clot. Examination of the incision demonstrated excellent hemostasis with the need for the Bovie and 1 small portion on the mid left side of the incision which was easily managed. The parietal peritoneum was loosely reapproximated after assuring hemostasis. The layer of muscles was examined and made hemostatic with the Bovie. The fascia was closed with 2 running stitches of 0 Vicryl proceeding from the lateral margins to the midpoint. The subcutaneous tissues were irrigated, made hemostatic with the Bovie, and reapproximated with a running stitch of 3-0 plain catgut. The skin was reapproximated with a running subcuticular stitch of 4-0 Vicryl followed by half-inch Steri-Strips placed with Mastisol. Estimated blood loss for the case was approximately 635 mL. There were no complications. All sponge, instrument, and needle counts were correct. The patient tolerated the procedure well and proceeded to the recovery room in stable condition. Both mother and infant are resting comfortably in recovery.
[2024-01-14] MEDS: ACETAMINOPHEN TAB 500 MG TAB PO SCH (16:30)
[2024-01-14] MEDS: KETOROLAC 15 MG/ML 1 ML VIAL IVP PRN (18:35)
[2024-01-14] MEDS: SENNOSIDES-DOCUSATE SODIUM 1 EACH TAB PO SCH (22:10)
[2024-01-15] MEDS: IBUPROFEN 600 MG TAB PO SCH (06:54)
[2024-01-15 08:16] LABS: Basophils % (A) 0 %; Eosinophils # (A) 0.1 k/uL (0-0.7); Eosinophils % (A) 1 %; HCT 29.3 % (34.0-46.0); HGB 9.3 gm/dL (11.4-16.0); Lymphocytes # (A) 2.7 k/uL (1.0-4.8); Lymphocytes % (A) 20 %; MCH 25.2 pg (25.0-35.0); MCHC 31.7 g/dL (31.0-37.0); MCV 79.4 fL (80.0-100.0); Mean Platelet Volume 8.6; Monocytes # (A) 0.8 k/uL (0-1.0); Monocytes % (A) 6 %; Neutrophils # (A) 9.5 k/uL (1.3-7.7); Neutrophils % (A) 72 %; Platelet Count 286 k/uL (150-450); RBC 3.69 m/uL (3.80-5.40); RDW 15.1 % (11.5-15.5); WBC 13.3 k/uL (3.8-10.6)
--- NOTE | 2024-01-15 08:28 | P.PNOBGPC ---
Subjective - Subjective Patient reports: Reports appetite normal, Reports voiding normally, Reports pain well controlled, Reports ambulating normally : doing well Objective - Vital Signs Latest vital signs: Vital Signs Temp Pulse Resp BP Pulse Ox 01/15/24 08:24 97.3 F L 85 16 125/77 01/15/24 03:53 87 17 128/78 99 01/15/24 02:00 16 01/15/24 00:00 97.9 F 74 17 138/84 98 01/14/24 22:00 88 17 98 01/14/24 20:00 97.9 F 98 16 139/74 99 01/14/24 18:00 17 99 01/14/24 16:00 46 H 01/14/24 15:26 98.0 F 61 16 142/64 100 01/14/24 15:11 98.0 F 60 17 140/63 100 01/14/24 14:56 59 L 17 152/65 99 01/14/24 14:41 57 L 17 138/62 100 01/14/24 14:25 60 17 143/62 99 01/14/24 14:09 55 L 17 140/62 98 01/14/24 14:00 17 98 01/14/24 13:55 57 L 17 148/65 99 01/14/24 13:41 60 17 125/60 99 01/14/24 13:26 96.6 F L 68 17 114/57 98 01/14/24 11:03 97.7 F 75 16 149/72 Intake and Output 01/14/24 01/15/24 01/15/24 22:59 06:59 14:59 Intake Total 517 480 Output Total 620 550 Balance -103 -70 Intake: IV 517 Oral 480 Output: Urine 400 550 Uretheral (Hansen) 200 Output, Quantitative 220 Blood Loss Other: Voiding Method Indwelling Catheter - Exam Extremities: Present: normal Abdomen: Present: normal appearance, soft. Absent: distention, tenderness Incision: Present: normal, dry, intact Uterus: Present: normal, firm (The uterine fundus is tonic and appropriately tender at the umbilicus.) - Labs Labs: Abnormal Lab Results - Last 24 Hours (Table) 01/14/24 01/15/24 Range/Units 10:30 07:52 WBC 11.3 H 13.3 H (3.8-10.6) k/uL RBC 3.69 L (3.80-5.40) m/uL Hgb 10.7 L 9.3 L (11.4-16.0) gm/dL Hct 32.1 L 29.3 L (34.0-46.0) % MCV 79.9 L 79.4 L (80.0-100.0) fL Neutrophils # 9.5 H (1.3-7.7) k/uL Assessment and Plan (1) Family planning Current Visit: Yes Status: Acute Code(s): Z30.09 - ENCOUNTER FOR OT GENERAL CNSL AND ADVICE ON CONTRACEPTION SNOMED Code(s): 538828242 (2) Previous section Current Visit: Yes Status: Acute Code(s): Z98.891 - HISTORY OF UTERINE SCAR FROM PREVIOUS SURGERY SNOMED Code(s): 249444628 (3) Term Current Visit: Yes Status: Acute Code(s): Z34.90 - ENCNTR FOR SUPRVSN OF NORMAL , UNSP, UNSP TRIMESTER SNOMED Code(s): 14819490 (4) S/P section Current Visit: Yes Status: Acute Code(s): Z98.891 - HISTORY OF UTERINE SCAR FROM PREVIOUS SURGERY SNOMED Code(s): 191330172 Plan: Continue routine and postoperative care. I have encouraged the patient to ambulate in the hallways routinely. I would anticipate probable discharge tomorrow pending no maternal or complications.
--- NOTE | 2024-01-15 13:34 | P.PN ---
Progress Note - Text Progress Note Date: 01/15/24 Postop day 1 from under spinal anesthesia with intrathecal morphine given for postop pain management. Patient is doing well. Pain is well controlled. On visual analog scale 6/10 Mild itching present No nausea or vomiting reported. No Headache or weakness and numbness in the legs. No complications from spinal anesthesia.
[2024-01-16 09:08] VITALS: BP 131/83; PULSE 81; RESP 17; TEMP 98
--- NOTE | 2024-01-16 09:10 | P.DS ---
Providers Date of admission: 01/14/24 10:17 Expected date of discharge: 01/16/24 Attending physician: Jose G Truong Primary care physician: Stated None - Discharge Diagnosis(es) (1) Family planning Current Visit: Yes Status: Acute (2) Previous section Current Visit: Yes Status: Acute (3) Term Current Visit: Yes Status: Acute (4) S/P section Current Visit: Yes Status: Acute Hospital Course: The patient is a 28-year-old 2 para 1-0-0-1 admitted at 39-1/7 weeks by good dating parameters. She is admitted for repeat low-transverse section and intraoperative bilateral tubal occlusion using Filshie clips. She has a previous low-transverse section. She additionally carries a diagnosis of chronic active hepatitis C for which she did not seek treatment between pregnancies. She also has a history of heroin use but has been in rehabilitation and off since 2017. She had COVID during the and had weekly nonstress testing which was reassuring starting at 32 weeks. On labor delivery, she was taken to the operating room where she underwent a repeat low- transverse section with intraoperative bilateral tubal occlusion using Filshie clips in an uncomplicated fashion. She was delivered of a viable 7 pound 7 ounce baby boy with Apgars of 9 at 1 minute and 10 at 5 minutes. Her and postoperative course was unremarkable with vital signs remaining stable and her temperature was afebrile throughout. She was deemed stable for discharge on and postoperative day #2 and was discharged home to follow-up in the office in 2 weeks for an incision check in 6 weeks routinely. Discharge instructions included calling for any significantly increased bleeding or foul-smelling lochia, significantly increased fever or abdominal pain, perineal complaints, breast complaints, incisional complaints, or anything else that concerned her. She was additionally instructed to have nothing in the vagina for at least 6 weeks time to include intercourse and to abstain from any heavy lifting over the same period of time. She was lastly instructed to do no driving until off of all pain medications or 2 weeks time, whichever came first. She understood her instructions and agrees to follow-up as noted above. Discharge medications included continued [id number] analgesic pain medications as well as a prescription for Tylenol 3, 1-2 p.o. every 6 hours as needed pain, #20 dispensed with no refills. Maternal blood type is O+ and rubella status is immune. Discharge hemoglobin and hematocrit were 9.3 and 29.3 respectively. She was therefore requested to take iron sulfate daily for another month to rebuild her hemoglobin. Procedures: #1. Repeat low-transverse section #2. Intraoperative bilateral tubal occlusion with Filshie clips Patient Condition at Discharge: Stable Plan - Discharge Summary Discharge Rx Participant: No New Discharge Prescriptions: No Action Vit No.179/Iron/Folic [ Tablet] 1 tab PO DAILY Discharge Medication List Vit No.179/Iron/Folic [ Tablet] 1 tab PO DAILY 07/31/22 [History] Follow up Appointment(s)/Referral(s): Jose G Truong MD [STAFF PHYSICIAN] - 2 Weeks Discharge Disposition: HOME SELF-CARE
== END 2024-01-16 12:40 | disposition home or self-care (01) | DRG 539 ==
LOC: 4FBP 10:17
PROVIDERS: ADMIT Obstetrics & Gynecology; ATTEND Obstetrics & Gynecology
PROC: 0UL70CZ Occlusion of Bilateral Fallopian Tubes with Extraluminal Device, Open Approach (ICD-10-PCS; 2024-01-14)
PROC: 10D00Z1 Extraction of Products of Conception, Low, Open Approach (ICD-10-PCS; principal; 2024-01-14 12:00)
DX: O34.211 Maternal care for low transverse scar from previous cesarean delivery (principal); G40.909 Epilepsy, unspecified, not intractable, without status epilepticus; O98.52 Other viral diseases complicating childbirth; O99.354 Diseases of the nervous system complicating childbirth; O99.73 Diseases of the skin and subcutaneous tissue complicating the puerperium; L29.9 Pruritus, unspecified; B18.2 Chronic viral hepatitis C; O98.42 Viral hepatitis complicating childbirth; Z86.16 Personal history of COVID-19; Z37.0 Single live birth; Z30.2 Encounter for sterilization; Z3A.39 39 weeks gestation of pregnancy
CPT/HCPCS: 85025; 86850; 86900; 86901